=== PATIENT | male | born 1995 | race Two or more races ===

== ENCOUNTER 2025-02-22 16:37 | Inpatient (IN) | payer OTHER ==
[~2025-02-22] VITALS: Ht 177.8 cm; Wt 77.3 kg
[2025-02-22 17:14] LABS: PLATELET COUNT (AUTO) 254 K/uL (150-450); RED BLOOD CELL COUNT(AUTO) 5.28 MIL/uL (4.50-5.90); RED CELL DISTRIBUTION WIDTH 13.8 % (11.5-14.5); WHITE BLOOD COUNT (AUTO) 11.0 K/uL (4.5-11.0)
[2025-02-22 17:24] LABS: CALCIUM, TOTAL 9.4 mg/dL (8.8-10.5); CREATININE 0.88 mg/dL (0.60-1.30); GLOMERULAR FILTR. RATE CALC > 60 mL/min (>60); GLUCOSE,RANDOM 106 mg/dL (70-110); SODIUM SERUM 142 mmol/L (136-145); UREA NITROGEN, BLOOD 10 mg/dL (7-18)
[2025-02-22 17:51] LABS: PH,URINE DRUG SCREEN 8.0 (5.0-8.0)
[2025-02-22 17:56] LABS: ALCOHOL, URINE DRUG SCREEN NEGATIVE (NEGATIVE); AMPHET/METH SCREEN,URINE NEGATIVE (NEGATIVE); BARBITURATE SCREEN, URINE NEGATIVE (NEGATIVE); CANNABINOID SCREEN,URINE POSITIVE (NEGATIVE); COCAINE SCREEN,URINE NEGATIVE (NEGATIVE); METHADONE SCREEN, URINE NEGATIVE (NEGATIVE)
[2025-02-22] MEDS: NICOTINE 21 MG/24 HOUR PATCH TD ONE (18:12)
[2025-02-22 18:49] LABS: COVID AG,FIA SOURCE NASAL SWAB
[2025-02-22] MEDS ORDERED: ACETAMINOPHEN 325 MG TABLET PO PRN (19:00)
[2025-02-22] MEDS ORDERED: ONDANSETRON HCL 4 MG/2 ML VIAL IVP PRN (19:00)
[2025-02-22 19:09] LABS: SARS-COV2 (COVID) ANTIGEN,FIA Negative (Negative)
[2025-02-22] MEDS: DOCUSATE SODIUM 100 MG CAPSULE PO SCH (20:06)
[2025-02-22 22:33] VITALS: BP 126/80; PULSE 70; RESP 18; TEMP 98.6; O2SAT 98
[2025-02-22] MEDS: HEPARIN SODIUM,PORCINE 5,000 UNITS/ML VIAL SQ SCH (22:54)
[2025-02-22] MEDS: MELATONIN 3 MG TABLET PO PRN (22:54)
[2025-02-23 05:16] VITALS: BP 117/77; PULSE 73; RESP 18; TEMP 97.5; O2SAT 98
[2025-02-23 06:26] LABS: PLATELET COUNT (AUTO) 238 K/uL (150-450); RED BLOOD CELL COUNT(AUTO) 4.99 MIL/uL (4.50-5.90); RED CELL DISTRIBUTION WIDTH 13.9 % (11.5-14.5); WHITE BLOOD COUNT (AUTO) 9.3 K/uL (4.5-11.0)
[2025-02-23 06:31] LABS: CALCIUM, TOTAL 9.5 mg/dL (8.8-10.5); CREATININE 0.98 mg/dL (0.60-1.30); GLOMERULAR FILTR. RATE CALC > 60 mL/min (>60); GLUCOSE,RANDOM 98 mg/dL (70-110); SODIUM SERUM 138 mmol/L (136-145); UREA NITROGEN, BLOOD 10 mg/dL (7-18)
[2025-02-23 07:59] VITALS: BP 125/62; PULSE 61; RESP 18; TEMP 98.1; O2SAT 98
[2025-02-23] MEDS: LOPERAMIDE HCL 2 MG CAPSULE PO PRN (11:47)
[2025-02-23] MEDS: NICOTINE 14 MG/24 HOUR PATCH TD SCH (18:16)
[2025-02-23 20:28] VITALS: BP 125/72; PULSE 69; RESP 18; TEMP 99; O2SAT 97
[2025-02-24 04:59] VITALS: BP 116/75; PULSE 74; RESP 18; TEMP 98.1; O2SAT 97
[2025-02-24 07:49] LABS: PLATELET COUNT (AUTO) 249 K/uL (150-450); RED BLOOD CELL COUNT(AUTO) 5.32 MIL/uL (4.50-5.90); RED CELL DISTRIBUTION WIDTH 13.7 % (11.5-14.5); WHITE BLOOD COUNT (AUTO) 8.2 K/uL (4.5-11.0)
[2025-02-24 07:54] LABS: CALCIUM, TOTAL 9.6 mg/dL (8.8-10.5); CREATININE 0.89 mg/dL (0.60-1.30); GLOMERULAR FILTR. RATE CALC > 60 mL/min (>60); GLUCOSE,RANDOM 78 mg/dL (70-110); SODIUM SERUM 140 mmol/L (136-145); UREA NITROGEN, BLOOD 10 mg/dL (7-18)
[2025-02-24] MEDS ORDERED: NICO-703 TD (16:04)
[2025-02-24] MEDS ORDERED: ACET-2247 PO (16:12)
[2025-02-24 19:35] VITALS: BP 122/74; PULSE 78; RESP 18; TEMP 97.9; O2SAT 98
[2025-02-25 04:25] VITALS: BP 112/73; PULSE 65; RESP 18; TEMP 97.3; O2SAT 99
== END 2025-02-25 11:00 | DRG 885 ==
LOC: EMS 16:37 → EDH 18:52 → 6S 22:14
PROVIDERS: ADMIT Internal Medicine; ATTEND Internal Medicine
DX: F33.0 Major depressive disorder, recurrent, mild (principal); R45.851 Suicidal ideations; F41.9 Anxiety disorder, unspecified; Z20.822 Contact with and (suspected) exposure to COVID-19; F17.210 Nicotine dependence, cigarettes, uncomplicated; R19.7 Diarrhea, unspecified; F12.10 Cannabis abuse, uncomplicated
CPT/HCPCS: 80048; 80307; 83735; 85025; 99285; G0480; J1644